=== PATIENT | female | born 1985 | race Caucasian/White ===

== ENCOUNTER 2019-02-10 08:20 | Day surgery (SDC) | payer BC ==
[2019-02-06 14:44] VITALS: BMI 25.7
[2019-02-10 08:48] LABS: BASO % 0.8 % (0-2.0); EOS % 2.5 % (0-4.5); HEMATOCRIT 39.5 % (32.4-45.2); LYMPH % 36.4 % (8-40); MCH 31.1 pg (25.7-33.7); MCHC 32.9 g/dl (32.0-36.0); MEAN CELL VOLUME 94.3 fl (80-96); MEAN PLT VOLUME 10.2 fl (7.5-11.1); MONO % 7.1 % (3.8-10.2); NEUT % 53.2 % (42.8-82.8); PLATELET COUNT 211 K/MM3 (134-434); RBC 4.19 M/mm3 (3.60-5.2); RDW 13.6 % (11.6-15.6); WHITE BLOOD COUNT 4.2 K/mm3 (4.0-10.0)
[2019-02-10] MEDS ORDERED: MIDAZOLAM HCL 2 MG/2 ML SINGLE DOSE VIAL ONE (10:57)
[2019-02-10] MEDS ORDERED: ROCURONIUM BROMIDE 50 MG/5 ML SYRINGE ONE ×2 (10:57→12:11)
[2019-02-10] MEDS ORDERED: PROPOFOL 20 ML ONE (10:57)
[2019-02-10] MEDS ORDERED: ONDANSETRON 4 MG/2 ML VIAL IVPUSH PRN (11:03)
[2019-02-10] MEDS ORDERED: oxyCODONE HCL 5 MG TABLET PO PRN (11:03)
[2019-02-10] MEDS ORDERED: PROMETHAZINE HCL 25 MG/1 ML VIAL IVPUSH PRN (11:03)
[2019-02-10] MEDS ORDERED: ceFAZolin SODIUM 1 GM VIAL IVPB ONE (11:20)
[2019-02-10] MEDS ORDERED: NEOSTIGMINE METHYLSULFATE 0.5 MG/ML - 10 ML MDV ONE (12:27)
[2019-02-10] MEDS ORDERED: SUCCINYLCHOLINE CHLORIDE 200 MG/10 ML SYRINGE ONE (15:18)
[2019-02-10 15:41] VITALS: BP 100/72; PULSE 64; TEMP 98.1
--- NOTE | 2019-02-10 17:00 | OP ---
Operative Note - Note: Operative Date: 02/10/19 Pre-Operative Diagnosis: DUBs, metrorrhagia. Persistent Rt ovarian cyst. Pelvic pain Operation: Hysteroscopy. D&C, polypectomy. Expl. Laparoscopy. Lysis of extensive adhesions. Cystotomy. LSO. Findings: Endometrial polyp. Mildly enlarged uterine cavity. Extensive adhesions. Torsion of fallopian tube and left I, cyst of a left adnexum. Both adnexa fused to uterus and each other. Post-Operative Diagnosis: Other (DUBs, metrorrhagia. Endometrial polyp. Extensive pelvic adhesions. Left ovarian cyst. Torsion (multiple times) of left fallopian tube and left IP ligament. Scar tissue.) Surgeon: Vern Mars Anesthesia: General Specimens Removed: EMC, polyps. Left tube and ovary. Estimated Blood Loss (mls): 20
--- NOTE | 2019-02-10 22:00 | OP ---
DATE OF OPERATION: 02/10/2019 PREOPERATIVE DIAGNOSES: 1. Pelvic pain. 2. Persistent right ovarian cyst. 3. Dysfunctional uterine bleeding, menorrhagia. POSTOPERATIVE DIAGNOSES: 1. Pelvic pain. 2. Left ovarian cyst with left adnexal torsion and extensive adhesions. 3. Dysfunctional uterine bleeding, menometrorrhagia and endometrial polyp. OPERATIONS: 1. Hysteroscopy, D and C, polypectomy. 2. Laparoscopy. Lysis of extensive adhesions. Left salpingoophorectomy. Drainage of ovarian cyst. SURGEON: Kaitlynn Mars MD [employer]PER[employer]OR [employer]: Yovani Pope PA-C ANESTHESIA: General. PROCEDURE AND FINDINGS: Under general anesthesia in dorsal lithotomy position, following routine prep and drape, hysteroscopy was carried out with 30-degree scope. Saline was used as a distending media. A rather large cavity, symmetrical, with multiple polypoid structures, especially on the anterior wall were noted. Endocervical canal was normal. After minimal dilatation, sharp curettage was performed producing marked amount of endometrial tissue with polyps. Polyp forceps were used to remove the rest of them. Post D&C hysteroscopy showed relatively empty cavity with minimal surface oozing. HUMI device was placed in the uterus, and bladder was emptied. Abdomen was prepped for the laparoscopy. Through infraumbilical vertical incision measuring 5 mm, Veress needle was inserted into the peritoneal cavity, and abdomen was insufflated with 3.5 L of carbon dioxide. A 5-mm Optiport was placed under direct vision. Two additional 5-mm trocars were placed to the right and left of the midline at the level of the umbilicus. Patient was placed in Trendelenburg, and findings were as follows: Left fallopian tube and left infundibulopelvic ligament were torsed several times with ovary barely visualized except for about 3-4 cm cyst. Both ovaries were fused together. Left adnexum was also adhered with thick as well as filmy adhesions to the posterior part of the uterus. Posterior uterine adhesions were extending down to the cul-de-sac. Right fallopian tube was pulled into this complex as well with right ovary being essentially normal. Cyst was definitely on the left ovary which was extended to the right side. That may explain the confusion with radiological images. Using monopolar scissors, multiple adhesions were released. There was no plane that would allow to separate between those ovaries. Decision was made to sacrifice the left adnexum which was already severely compromised by multiple twists and preserve the right side as intact as possible. LigaSure was placed in the abdomen, and using very small bites, right ovary was freed. Right fallopian tube was unaffected by the dissection. Right adnexum regained complete mobility. Prior to it, ovarian cyst was drained, and clear fluid was discharged. With the decreased volume, attempts were made to untwist the adnexa. They were unsuccessful. At that point, decision was made to perform left-sided adnexectomy. Ureter was identified. Very elongated infundibulopelvic ligament and fallopian tubes were divided. Specimen was placed in the cul-de-sac. Pelvis was lavaged and carefully examined. There was no bleeding. Right adnexum looked reasonably decent considering the large part of it was involved with adhesions and scar tissue build-up. Posterior aspect of the uterus was secured, and there was no bleeding. There was no evidence of endometriosis, active infection, or any other pathology. Umbilical incision was slightly extended, and Endo Catch device was placed in the abdomen without using the trocar. Specimen was picked and retrieved through the umbilical incision. Abdomen was again lavaged, inspected, and was found to be completely within normal limits with excellent hemostasis. Yaw-Catherine device and Vicryl 2-0 suture were then used to close the umbilical incision. After that, all incisions were closed with subcuticular 3-0 Biosyn sutures, and dressings were applied. Blood loss was less than 25 mL. Procedure went uneventfully other than difficult surgical circumstances and necessity to make a decision regarding left salpingo-oophorectomy. With all instruments withdrawn, patient was awakened and transferred to PACU, comfortable and stable. KAITLYNN MARS MD [id number] MTDJohn
--- NOTE | 2019-02-11 10:20 | SURG ---
Surgery Editor & Co Founder Note Editor & Co Founder: Yovani Pope PA-C Date of Service: 02/10/19 Diagnosis: DUBs, metrorrhagia. Persistent Rt ovarian cyst. Pelvic pain Procedure: Hysteroscopy. D&C, polypectomy. Expl. Laparoscopy. Lysis of extensive adhesions. Cystotomy. LSO. I was present for the entirety of the operative procedure. For further detail, please refer to operative report. Visit type - Case Type Case Type: Scheduled - Emergency Emergency Visit: No - New patient This patient is new to me today: Yes Date on this admission: 02/11/19 - Critical Care Critical Care patient: No
--- NOTE | 2019-02-11 18:46 | PATH ---
Surgical Pathology Report Patient Name: JAYSON CHEN [facility]. Rec. #: [id number] /Age/Gender: 1985 (Age: 34) / F Account: [id number] Location: [facility] SURGICAL Taken: 02/10/2019 Received: 02/10/2019 Reported: 02/11/2019 Physicians: Vern Mars MD Specimen(s) Received A: ENDOCERVICAL CURETTINGS AND POLYP B: LEFT TUBE, OVARY WITH TORSION Clinical History Dysmenorrhea, excessive and frequent menstruation with irregular cycle Final Diagnosis A. ENDOMETRIAL CURETTINGS AND POLYP: ENDOMETRIAL POLYP. SEPARATE FRAGMENTS OF PROLIFERATIVE ENDOMETRIUM. B. LEFT TUBE AND OVARY WITH TORSION, SALPINGO-OOPHORECTOMY: OVARY WITH SEROUS CYSTADENOFIBROMA. PORTION OF FALLOPIAN TUBE WITH PARATUBAL CYST. Electronically Signed Sonya Campbell M.D. Gross Description A. Received in formalin labeled "endometrial curetting and polyp," is a 3.3 x 2.5 x 0.3 cm aggregate of greene-red soft tissue fragments. The formalin is filtered and the specimen is entirely submitted in one cassette. B. Received in formalin labeled "left tubal ovary with torsion," is a 3.4 cm in length fimbriated fallopian tube. The outer surface is greene-pink with tubal ovarian adhesions. Sectioning reveals an unremarkable fallopian tube lumen. There is a 4.4 x 3.0 x 1.4 cm cystic-appearing ovary attached to the fallopian tube. The outer surface of the ovary is greene-pink and smooth. Sectioning reveals a cystic lumen with abundant greene, papillary excrescences on the inner lining. No normal ovarian parenchyma is identified. [employer] sections are submitted in 7 cassettes as follows: 1-fimbria; 2-cross sections of fallopian tube; 3-7-ovarian cyst with excrescences. /02/10/2019 saudi02/10/2019
== END 2019-02-10 15:54 | disposition home or self-care (01) ==
LOC: JASU-SURG 08:20
PROVIDERS: ATTEND Specialist
PROC: 0UB14ZZ Excision of Left Ovary, Percutaneous Endoscopic Approach (ICD-10-PCS; 2019-02-10)
PROC: 0UB98ZX Excision of Uterus, Via Natural or Artificial Opening Endoscopic, Diagnostic (ICD-10-PCS; principal; 2019-02-10 11:00)
PROC: 0UDB8ZX Extraction of Endometrium, Via Natural or Artificial Opening Endoscopic, Diagnostic (ICD-10-PCS; 2019-02-10 11:00)
PROC: 0UB64ZZ Excision of Left Fallopian Tube, Percutaneous Endoscopic Approach (ICD-10-PCS; 2019-02-10 11:00)
DX: N83.202 Unspecified ovarian cyst, left side (principal); R10.2 Pelvic and perineal pain; N73.6 Female pelvic peritoneal adhesions (postinfective); N93.8 Other specified abnormal uterine and vaginal bleeding; N83.53 Torsion of ovary, ovarian pedicle and fallopian tube
CPT/HCPCS: 36415; 84703; 85025; 88305-TC; 88307-TC; 94760